=== PATIENT | female | born 1940 | race Caucasian/White ===

== ENCOUNTER 2018-12-21 11:46 | Inpatient (IN) | payer MEDICARE, BC ==
[~2018-12-21] VITALS: Ht 162.6 cm; Wt 70.3 kg
[2018-12-21 11:45] VITALS: BP 136/84
--- NOTE | 2018-12-21 11:49 | NUR ---
ED Nurse Note: Pt brought in to ER from home due to sudden weakness and s/p fall from yesterday. per pt's niece, pt slided down from toilet bowl yesterday and pt has skin tear on Lt arm while family grabbed pt from sliding down. pt aao x2 and most of time ambulatory. skin dry and Lt arm skin tear noted. calm and cooperative. no acute distress noted.
--- NOTE | 2018-12-21 11:55 | NUR ---
ED Nurse Note: steri strip applied on Lt arm skin tear. no bleeding noted.
[2018-12-21 12:47] LABS: HEMATOCRIT 44.2 % (37.0-47.0); HEMOGLOBIN 14.1 G/DL (12.0-16.0); MEAN CORPUSCULAR VOLUME 91 FL (80-99); PLATELET COUNT 255 K/UL (150-450); RED BLOOD COUNT 4.86 M/UL (4.20-5.40); RED CELL DISTRIBUTION WIDTH 13.6 % (11.6-14.8)
[2018-12-21 12:52] LABS: ANION GAP 15 mmol/L (5-15); BLOOD UREA NITROGEN 27 mg/dL (7-18); CALCIUM 10.5 MG/DL (8.5-10.1); CARBON DIOXIDE 24 MMOL/L (21-32); CHLORIDE 104 MMOL/L (98-107); CREATININE 1.6 MG/DL (0.55-1.30); POTASSIUM 4.3 MMOL/L (3.5-5.1); SODIUM 143 MMOL/L (136-145)
[2018-12-21] MEDS ORDERED: cefTRIAXone 1 GM in NS 55 ML IVPB ONE (13:00)
[2018-12-21 13:05] LABS: ALANINE AMINOTRANSFERASE 20 U/L (12-78); ALBUMIN 4.3 G/DL (3.4-5.0); ALKALINE PHOSPHATASE 57 U/L (46-116); ASPARTATE AMINO TRANSFERASE 22 U/L (15-37); BILIRUBIN,TOTAL 0.5 MG/DL (0.2-1.0)
[2018-12-21 13:35] LABS: APPEARANCE,URINE CLOUDY; BILIRUBIN, URINE NEGATIVE (NEGATIVE); COLOR,URINE PALE YELLOW; GLUCOSE, URINE (UA) NEGATIVE (NEGATIVE); KETONES,URINE NEGATIVE (NEGATIVE); LEUKOCYTE ESTERASE ,URINE 1+ (NEGATIVE); NITRITE,URINE NEGATIVE (NEGATIVE); PH,URINE 6 (4.5-8.0); PROTEIN,URINE 4+ (NEGATIVE); UROBILINOGEN,URINE NORMAL MG/DL (0.0-1.0)
--- NOTE | 2018-12-21 13:47 | NUR ---
ED Nurse Note: DOMINGUEZD at bedside explaining lab results to the daughter.
--- NOTE | 2018-12-21 13:50 | NUR ---
ED Nurse Note: pt went down for CT scan in stable condition.
--- NOTE | 2018-12-21 13:55 | Emergency Room Report ---
History of Present Illness General Chief Complaint: Generalized Weakness Source: Family Member Present Illness HPI Patient is a 78-year-old female brought in by EMS after increased generalized weakness. Patient had recently been found on the ground by her family member. She was noted to be unresponsive. She had a prior history of dementia. She was able to be placed back into her bed after the fall. Patient reportedly lives by herself. She has intermittent caregiver. She had been previously independent. She had not been vomiting or having any diarrhea. Patient denies any current pain. She is normally followed at [facility]. Allergies: Coded Allergies: No Known Allergies (Unverified , 12/21/18) Patient History Past Medical History: see triage record Reviewed Nursing Documentation: PMH: Agreed; PSxH: Agreed Nursing Documentation-PMH Hx Cardiac Problems: No - h/o of uti Review of Systems All Other Systems: negative except mentioned in HPI Physical Exam Vital Signs Date Time Temp Pulse Resp B/P (MAP) Pulse Ox O2 Delivery O2 Flow Rate FiO2 12/21/18 11:31 98.6 82 17 136/84 (101) 97 Room Air Sp02 EP Interpretation: reviewed, normal General Appearance: normal inspection, alert, GCS 15, Chronically Ill Head: atraumatic ENT: normal ENT inspection, hearing grossly normal, normal voice Neck: normal inspection, supple, no bony tend Respiratory: normal inspection, lungs clear, normal breath sounds, no respiratory distress, no retraction, no wheezing Cardiovascular #1: regular rate, rhythm, no edema Gastrointestinal: normal inspection, normal bowel sounds, non tender, soft, no guarding, no hernia Genitourinary: no CVA tenderness Musculoskeletal: normal inspection, back normal, decreased range of motion Neurologic: normal inspection, alert, oriented x3, responsive, 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 Differential diagnosis include was not limited to rhabdomyolysis, dehydration, urinary infection, myocardial injury among others. Because of complexity of patient's case laboratory tests and imaging studies were ordered. Patient was noted to have some prior history of dementia EKG interpreted by me showed normal sinus rhythm with a rate of 85 with a right bundle branch block no acute ST changes. Patient was put on IV fluids and given IV antibiotics.CT imaging of the abdomen pelvis read by radiology showed no evident stones with enlarged gallbladder. Patient was discussed with Dr. George Castro for inpatient management. Dr. Garcia he was contacted for surgical consult. Labs Test 12/21/18 12:00 12/21/18 12:40 White Blood Count 15.0 K/UL (4.8-10.8) Red Blood Count 4.86 M/UL (4.20-5.40) Hemoglobin 14.1 G/DL (12.0-16.0) Hematocrit 44.2 % (37.0-47.0) Mean Corpuscular Volume 91 FL (80-99) Mean Corpuscular Hemoglobin 29.1 PG (27.0-31.0) Mean Corpuscular Hemoglobin Concent 32.0 G/DL (32.0-36.0) Red Cell Distribution Width 13.6 % (11.6-14.8) Platelet Count 255 K/UL (150-450) Mean Platelet Volume 5.9 FL (6.5-10.1) Neutrophils (%) (Auto) % (45.0-75.0) Lymphocytes (%) (Auto) % (20.0-45.0) Monocytes (%) (Auto) % (1.0-10.0) Eosinophils (%) (Auto) % (0.0-3.0) Basophils (%) (Auto) % (0.0-2.0) Erythrocyte Sedimentation Rate 37 MM/HR (0-30) Sodium Level 143 MMOL/L (136-145) Potassium Level 4.3 MMOL/L (3.5-5.1) Chloride Level 104 MMOL/L (98-107) Carbon Dioxide Level 24 MMOL/L (21-32) Anion Gap 15 mmol/L (5-15) Blood Urea Nitrogen 27 mg/dL (7-18) Creatinine 1.6 MG/DL (0.55-1.30) Estimat Glomerular Filtration Rate mL/min (>60) Glucose Level 134 MG/DL (74-106) Calcium Level 10.5 MG/DL (8.5-10.1) Total Bilirubin 0.5 MG/DL (0.2-1.0) Aspartate Amino Transf (AST/SGOT) 22 U/L (15-37) Alanine Aminotransferase (ALT/SGPT) 20 U/L (12-78) Alkaline Phosphatase 57 U/L (46-116) Troponin I 0.009 ng/mL (0.000-0.056) Total Protein 8.5 G/DL (6.4-8.2) Albumin 4.3 G/DL (3.4-5.0) Globulin 4.2 g/dL Albumin/Globulin Ratio 1.0 (1.0-2.7) Thyroid Stimulating Hormone (TSH) 2.717 uiU/mL (0.358-3.740) Urine Color Pale yellow Urine Appearance Cloudy Urine pH 6 (4.5-8.0) Urine Specific [place] 1.015 (1.005-1.035) Urine Protein 4+ (NEGATIVE) Urine Glucose (UA) Negative (NEGATIVE) Urine Ketones Negative (NEGATIVE) Urine Blood 4+ (NEGATIVE) Urine Nitrite Negative (NEGATIVE) Urine Bilirubin Negative (NEGATIVE) Urine Urobilinogen Normal MG/DL (0.0-1.0) Urine Leukocyte Esterase 1+ (NEGATIVE) Urine RBC 10-15 /HPF (0 - 2) Urine WBC 15-20 /HPF (0 - 2) Urine Squamous Epithelial Cells Few /LPF (NONE/OCC) Urine Bacteria Many /HPF (NONE) Last Vital Signs Date Time Temp Pulse Resp B/P (MAP) Pulse Ox O2 Delivery O2 Flow Rate FiO2 12/21/18 11:45 98.6 85 17 136/84 100 Room Air Status: improved Disposition: ADMITTED INPATIENT Condition: Stable Referrals: NOT CHOSEN IPA/,REFERRING (PCP) Jeremías Cruz MD Dec 21, 2018 13:55
--- NOTE | 2018-12-21 14:09 | NUR ---
ED Nurse Note: pt came back from CT scan in stable condition.
--- NOTE | 2018-12-21 14:50 | Diagnostic Imaging Report ---
EXAM: CT Abdomen and Pelvis Without Intravenous Contrast CLINICAL HISTORY: PAIN TECHNIQUE: Axial computed tomography images of the abdomen and pelvis without intravenous contrast. CTDI is 18.1 mGy and DLP is 987.8 mGy-cm. One or more of the following dose reduction techniques were used: automated exposure control, adjustment of the mA and or kV according to patient size, use of iterative reconstruction technique. COMPARISON: No relevant prior studies available. FINDINGS: Lung bases: Elevation of the left diaphragm. Small nodules in the right lung base. Left lung base-left upper abdomen incompletely imaged. ABDOMEN: Liver: Unremarkable Gallbladder and bile ducts: Cholelithiasis and gallbladder distention. Pancreas: Atrophic pancreas. Spleen: Unremarkable. Adrenals: Unremarkable. Kidneys and ureters: Small left renal angiomyolipoma. No hydronephrosis. Stomach and bowel: Surgical changes related to the stomach. PELVIS: Appendix: Unremarkable appendix. Bladder: Guerra catheter. Reproductive: Unremarkable. ABDOMEN and PELVIS: Intraperitoneal space: Unremarkable. Bones joints: Left hip prosthesis. Spinal fusion. Soft tissues: Unremarkable. Vasculature: Unremarkable. No abdominal aortic aneurysm. Lymph nodes: No enlarged lymph nodes. IMPRESSION: 1. Cholelithiasis and gallbladder distention. 2. Unremarkable appendix.
--- NOTE | 2018-12-21 15:10 | Consultation ---
History of Present Illness General Date patient seen: Dec 21, 2018 Reason for Hospitalization: Generalized Weakness Present Illness HPI This is a very pleasant 78-year-old female who presents to the emergency department [facility] for evaluation after being found down by her family and caregiver. Patient is accompanied by her daughter who helps with history. As per patient's daughter she was found down in the bathroom earlier and was helped by the caregiver get into bed. [place] weak and had some altered mental status and therefore was brought in for evaluation. Patient does not recall these events. No nausea vomiting fever chills. Complaining of mild abdominal upper discomfort. In ED found to have a leukocytosis. CT scan performed identifying gallbladder distention with sludge and stones. Surgery called to evaluate and assist with care. Patient seen, patient evaluated, chart reviewed. Patient has been tolerating diet and having normal bowel function. Urinating well. Of note surgical history of prior laparoscopic gastric bypass many years ago. Allergies: Coded Allergies: No Known Allergies (Unverified , 12/21/18) Patient History Limited by: age, medical condition History Provided By: Patient, Medical Record, PMD Healthcare decision maker Resuscitation status Advanced Directive on File Past Medical/Surgical History Past Medical/Surgical History: (1) Abdominal pain (2) UTI (urinary tract infection) (3) Altered mental status (4) Generalized weakness (5) Leukocytosis Review of Systems Review of Symptoms General ROS: no weight loss or fever Psychological ROS: no depression or mood changes, no memory loss Ophthalmic ROS: no visual changes or eye irritation ENT ROS: no nasal congestion, hearing loss, dizziness Allergy and Immunology ROS: no allergic symptoms or urticaria Hematological and Lymphatic ROS: no swollen glands, unusual bleeding or bruising Endocrine ROS: no polyuria, polydipsia, weight changes, temperature intolerance Respiratory ROS: no cough, shortness of breath, or wheezing Cardiovascular ROS: no chest pain or dyspnea on exertion Gastrointestinal ROS: denies abdominal pain, bright red blood in stool. Musculoskeletal ROS: no myalgias or arthralgias Neurological ROS: no TIA or stroke symptoms Dermatological ROS: no new or changing skin lesions, rashes or pruritis Physical Exam Physical Exam General appearance: alert, cooperative, no distress, appears stated age Head: Normocephalic, without obvious abnormality, atraumatic Eyes: conjunctivae/corneas clear. PERRL, EOM's intact. Fundi benign Throat: Lips, mucosa, and tongue normal. Teeth and gums normal Neck: supple, symmetrical, trachea midline, no adenopathy, thyroid: not enlarged, symmetric, no tenderness/mass/nodules, no carotid bruit and no JVD Lungs: clear to auscultation bilaterally Heart: regular rate and rhythm, S1, S2 normal, no murmur, click, rub or gallop Abdomen: soft, non-tender but notes some mild discomfort in the upper abdomen on deep palpation. Bowel sounds normal. No masses, no organomegaly Extremities: extremities normal, atraumatic, no cyanosis or edema Pulses: 2+ and symmetric Skin: Skin color, texture, turgor normal. No rashes or lesions Neurologic: Grossly normal Last 24 Hour Vital Signs Date Time Temp Pulse Resp B/P (MAP) Pulse Ox O2 Delivery O2 Flow Rate FiO2 12/21/18 11:45 98.6 85 17 136/84 100 Room Air 12/21/18 11:45 90 17 Room Air 12/21/18 11:31 98.6 82 17 136/84 (101) 97 Room Air Laboratory Tests Test 12/21/18 12:00 12/21/18 12:40 White Blood Count 15.0 K/UL (4.8-10.8) H Red Blood Count 4.86 M/UL (4.20-5.40) Hemoglobin 14.1 G/DL (12.0-16.0) Hematocrit 44.2 % (37.0-47.0) Mean Corpuscular Volume 91 FL (80-99) Mean Corpuscular Hemoglobin 29.1 PG (27.0-31.0) Mean Corpuscular Hemoglobin Concent 32.0 G/DL (32.0-36.0) Red Cell Distribution Width 13.6 % (11.6-14.8) Platelet Count 255 K/UL (150-450) Mean Platelet Volume 5.9 FL (6.5-10.1) L Neutrophils (%) (Auto) % (45.0-75.0) Lymphocytes (%) (Auto) % (20.0-45.0) Monocytes (%) (Auto) % (1.0-10.0) Eosinophils (%) (Auto) % (0.0-3.0) Basophils (%) (Auto) % (0.0-2.0) Differential Total Cells Counted 100 Neutrophils % (Manual) 92 % (45-75) H Lymphocytes % (Manual) 2 % (20-45) L Monocytes % (Manual) 6 % (1-10) Eosinophils % (Manual) 0 % (0-3) Basophils % (Manual) 0 % (0-2) Band Neutrophils 0 % (0-8) Platelet Estimate Adequate Platelet Morphology Normal Red Blood Cell Morphology Normal Erythrocyte Sedimentation Rate 37 MM/HR (0-30) H Sodium Level 143 MMOL/L (136-145) Potassium Level 4.3 MMOL/L (3.5-5.1) Chloride Level 104 MMOL/L (98-107) Carbon Dioxide Level 24 MMOL/L (21-32) Anion Gap 15 mmol/L (5-15) Blood Urea Nitrogen 27 mg/dL (7-18) H Creatinine 1.6 MG/DL (0.55-1.30) H Estimat Glomerular Filtration Rate mL/min (>60) Glucose Level 134 MG/DL (74-106) H Calcium Level 10.5 MG/DL (8.5-10.1) H Total Bilirubin 0.5 MG/DL (0.2-1.0) Aspartate Amino Transf (AST/SGOT) 22 U/L (15-37) Alanine Aminotransferase (ALT/SGPT) 20 U/L (12-78) Alkaline Phosphatase 57 U/L (46-116) Troponin I 0.009 ng/mL (0.000-0.056) Total Protein 8.5 G/DL (6.4-8.2) H Albumin 4.3 G/DL (3.4-5.0) Globulin 4.2 g/dL Albumin/Globulin Ratio 1.0 (1.0-2.7) Thyroid Stimulating Hormone (TSH) 2.717 uiU/mL (0.358-3.740) Urine Color Pale yellow Urine Appearance Cloudy Urine pH 6 (4.5-8.0) Urine Specific [place] 1.015 (1.005-1.035) Urine Protein 4+ (NEGATIVE) H Urine Glucose (UA) Negative (NEGATIVE) Urine Ketones Negative (NEGATIVE) Urine Blood 4+ (NEGATIVE) H Urine Nitrite Negative (NEGATIVE) Urine Bilirubin Negative (NEGATIVE) Urine Urobilinogen Normal MG/DL (0.0-1.0) Urine Leukocyte Esterase 1+ (NEGATIVE) H Urine RBC 10-15 /HPF (0 - 2) H Urine WBC 15-20 /HPF (0 - 2) H Urine Squamous Epithelial Cells Few /LPF (NONE/OCC) Urine Bacteria Many /HPF (NONE) H Height (Feet): 5 Height (Inches): 4.00 Weight (Pounds): 180 Medications Current Medications Medications (Trade) Dose Ordered Sig/Wes Route PRN Reason Start Time Stop Time Status Last Admin Dose Admin Metronidazole 100 ml @ 100 mls/hr ONCE ONCE IVPB 12/21/18 14:45 12/21/18 15:44 12/21/18 14:54 Assessment/Plan Problem List: (1) Leukocytosis Assessment & Plan: 78-year-old female with above complaints. CT reviewed noted Labs noted Micro noted Given history and examination leukocytosis likely related to UTI. Unlikely related to gallbladder but was noted to be abnormal on CT scan. Ultrasound ordered Labs ordered Pending results Admit for further work-up, IV antibiotics, resuscitation We will follow with recommendations thank you for allowing me to participate in patient's care ICD Codes: D72.829 - Elevated white blood cell count, unspecified SNOMED: [id number], [id number] (2) Abdominal pain Assessment & Plan: Mild upper abdominal discomfort. No significant tenderness. Negative Castro's. LFTs normal History of gastric bypass no prior significant gallbladder issues Given history and examination leukocytosis likely related to UTI. Unlikely related to gallbladder but was noted to be abnormal on CT scan. Ultrasound ordered Labs ordered Pending results Admit for further work-up, IV antibiotics, resuscitation We will follow with recommendations thank you for allowing me to participate in patient's care ICD Codes: R10.9 - Unspecified abdominal pain SNOMED: [id number] Joselo Zabala Dec 21, 2018 15:10
--- NOTE | 2018-12-21 15:31 | NUR ---
ED Nurse Note: report given to DELIA Ramsay
[2018-12-21] MEDS ORDERED: ARICEPT10 MG ORAL (15:32)
[2018-12-21] MEDS ORDERED: DEXILANT30 MG ORAL (15:35)
[2018-12-21] MEDS ORDERED: NAMENDA XR28 MG PO (15:35)
[2018-12-21] MEDS ORDERED: ZYPREXA5 MG ORAL (15:35)
[2018-12-21] MEDS ORDERED: FENOFIBRATE145 M1 ORAL (15:35)
[2018-12-21] MEDS ORDERED: ASPIRIN EC81 MG ORAL (15:35)
[2018-12-21] MEDS ORDERED: REMERON15 MG ORAL (15:35)
[2018-12-21] MEDS ORDERED: ZOCOR40 MG ORAL (15:35)
[2018-12-21] MEDS ORDERED: SINGULAIR10 MG ORAL (15:35)
--- NOTE | 2018-12-21 15:47 | NUR ---
ED Nurse Note: pt transferred to 411-1 with 1 RN in stable condition.
[2018-12-21 16:00] VITALS: BP 149/82
--- NOTE | 2018-12-21 16:00 | NUR ---
NURSE NOTES: Received patient from ER via gurney. Report received from Natalee LIN. Patient is alert and oriented x2, not in respiratory/cardiac distress. Breathing is even and unlabored. Patient denies any pain or discomfort. Patient's daughter @ bedside. Obtained medical history from daughter. Orientation given to the patient and reenforcement needed. Skin assessment done noted with left forearm and hand skin tear and left elbow redness, left buttock redness, most likely skin discoloration. patient's skin is flaky and dry, thin. noted with multiple scabs on left lower leg and ecchymosis on ex's. Guerra 16fr in [address] and draining well to gravity with yellowish urine with foul smell, proper monica and skin care rendered. IV intact, no s/s of infiltration. Patient is afebrile. Dr. Castro was paged for admission order and home medication updated. Will continue plan of care.
[2018-12-21] MEDS ORDERED: Zolpidem 5mg tab ORAL PRN (17:30)
[2018-12-21] MEDS ORDERED: Milk of Magnesia 30ml Ud ORAL PRN (17:30)
--- NOTE | 2018-12-21 17:52 | NUR ---
NURSE NOTES: Admission orders were in by Dr. Castro.
--- NOTE | 2018-12-21 19:26 | NUR ---
NURSE NOTES: Received report from Diane kelsey RN. Patient is in bed, awake and alertx2. On room air with no signs of distress or SOB. No C/O pain at this time. IV in the RAC intact. Guerra in place and draining yellow urine. Daughter at bedside. Bed locked and in lowest position. Call light in reach. Will continue to monitor the patient.
[2018-12-21 20:00] VITALS: BP 121/62
[2018-12-21] MEDS: Montelukast 10mg tablet ORAL SCH (21:01)
[2018-12-21] MEDS: Donepezil 10mg tab ORAL SCH (21:01)
[2018-12-21] MEDS: Piperacillin/Tazobactam 2.25 GM in D5W 55 ML IVPB SCH (21:07)
--- NOTE | 2018-12-21 21:09 | History & Physical ---
History and Physical History & Physicial chart reviewed orders entered full note will be dictated George Castro MD Dec 21, 2018 21:09
[2018-12-22] VITALS: BP 129/74
--- NOTE | 2018-12-22 03:00 | Consultation ---
DATE OF CONSULTATION: 12/21/2018 INFECTIOUS DISEASE CONSULTATION CONSULTING PHYSICIAN: Davis Castro M.D. PRIMARY ATTENDING PHYSICIAN: George Castro M.D. REASON FOR CONSULT: UTI. HISTORY OF PRESENT ILLNESS: This is a 78-year-old white female, admitted today from home. She had a fall after waking up in the morning, was found on the floor by caregiver. She has Alzheimer dementia, has no complaint on my exam, but had leukocytosis and pyuria at the time of admission. PAST MEDICAL HISTORY: Alzheimer's dementia, history of morbid obesity, gastric bypass, history of coronary artery disease, had a stent placement, hypertension that resolved after bypass surgery. She has neurogenic bladder. PAST SURGICAL HISTORY: She had bilateral knee replacement, one side hip replacement, has history of back surgery. ALLERGIES: No known drug allergies. MEDICATIONS: Aspirin, Zosyn, Aricept, Remeron, Singulair, Zyprexa, and Tylenol. Got a dose of ceftriaxone and Flagyl in the ER. SOCIAL HISTORY: Remote history of smoking. No drinking. No alcohol abuse. , has two children. REVIEW OF SYSTEMS: The patient denies any problem and has no pain. PHYSICAL EXAMINATION: VITAL SIGNS: Temperature 98.5, pulse 89, and blood pressure 129/78. GENERAL APPEARANCE: Seems to be well developed. HEAD AND NECK: [place] conjunctivae. HEART: Normal rate. LUNGS: Clear. ABDOMEN: Soft and nontender. EXTREMITIES: No edema. NEUROLOGIC: She is awake and alert, seems to have problem to remember what happened. LABORATORY AND DIAGNOSTIC DATA: WBC 15, hemoglobin 14.1, hematocrit 44.2, and platelets 255,000. Sodium 143, potassium 4.3, chloride 104, bicarbonate 24, BUN 27, and creatinine 1.6. Calcium is 10.5. AST and ALT are normal. Total protein is 8.5, albumin 4.3. CT scan of the abdomen and pelvis, cholelithiasis, gallbladder distention, and unremarkable appendix. UA showed wbc's of 15 to 20, rbc's 10 to 50, blood 4+, leukocyte esterase 1+, and bacteria many. IMPRESSION: 1. Pyuria, likely UTI. 2. Cholelithiasis Castro's was negative. 3. Neurogenic bladder . 4. Elevated BUN and creatinine, renal failure. 5. Hypercalcemia. 6. Alzheimer's dementia. 7. Hypernatremia. 8. Coronary artery disease. RECOMMENDATION: We will continue with Zosyn. We will follow up urine culture. At the end of my exam, I thank Dr. eGorge Castro for involving me in the care of this patient. Davis Castro M.D. DR: LACEY JOB#: [id number] CC: CLIFF
[2018-12-22 04:00] VITALS: BP 126/57
[2018-12-22] MEDS: Piperacillin/Tazobactam 2.25 GM in D5W 55 ML IVPB SCH ×3 (05:08→22:03)
--- NOTE | 2018-12-22 07:36 | NUR ---
HAND-OFF: Report given to DELIA Winters.
--- NOTE | 2018-12-22 07:37 | NUR ---
NURSE NOTES: Received patient in bed asleep. No SOB or cardiac distress. IV line intact and patent. FC intact and patent. Wound dressings intact. Will continue plan of care.
[2018-12-22 07:53] LABS: HEMATOCRIT 33.9 % (37.0-47.0); HEMOGLOBIN 11.2 G/DL (12.0-16.0); MEAN CORPUSCULAR VOLUME 91 FL (80-99); PLATELET COUNT 191 K/UL (150-450); RED BLOOD COUNT 3.74 M/UL (4.20-5.40); RED CELL DISTRIBUTION WIDTH 13.8 % (11.6-14.8); WHITE BLOOD COUNT 9.8 K/UL (4.8-10.8)
[2018-12-22 08:00] VITALS: BP_SYST 107; BP_SYST 146; BP_DIAS 60; BP_DIAS 92
[2018-12-22] MEDS: Aspirin EC 81mg tab ORAL SCH (08:46)
--- NOTE | 2018-12-22 08:57 | NUR ---
NURSE NOTES: Found FC pulled out with balloon still inflated. Patient said she did not feel any pain. No bleeding noted.
[2018-12-22 09:03] LABS: ALANINE AMINOTRANSFERASE 14 U/L (12-78); ALBUMIN 3.2 G/DL (3.4-5.0); ALBUMIN/GLOBULIN RATIO 0.9 (1.0-2.7); ALKALINE PHOSPHATASE 43 U/L (46-116); AMYLASE 43 U/L (25-115); ANION GAP 12 mmol/L (5-15); ASPARTATE AMINO TRANSFERASE 17 U/L (15-37); BILIRUBIN,TOTAL 0.3 MG/DL (0.2-1.0); BLOOD UREA NITROGEN 22 mg/dL (7-18); CALCIUM 9.5 MG/DL (8.5-10.1); CARBON DIOXIDE 21 MMOL/L (21-32); CHLORIDE 107 MMOL/L (98-107); CREATININE 1.6 MG/DL (0.55-1.30); POTASSIUM 3.3 MMOL/L (3.5-5.1); SODIUM 140 MMOL/L (136-145)
--- NOTE | 2018-12-22 09:30 | NUR ---
NURSE NOTES: Attempted to reinsert FC but no urine output.
--- NOTE | 2018-12-22 11:00 | NUR ---
NURSE NOTES: Patient seen by Dr Lillie Benoit, said patient did not need FC reinsertion anymore.
--- NOTE | 2018-12-22 11:11 | General Progress Note ---
Assessment/Plan Problem List: (1) UTI (urinary tract infection) ICD Codes: N39.0 - Urinary tract infection, site not specified SNOMED: 38384107 (2) Gallbladder disorder ICD Codes: K82.9 - Disease of gallbladder, unspecified SNOMED: 91781866 (3) Leukocytosis ICD Codes: D72.829 - Elevated white blood cell count, unspecified SNOMED: 906727566, 681615187 (4) Altered mental status ICD Codes: R41.82 - Altered mental status, unspecified SNOMED: 276377619 (5) Generalized weakness ICD Codes: R53.1 - Weakness SNOMED: 60639660 (6) Abdominal pain ICD Codes: R10.9 - Unspecified abdominal pain SNOMED: 41977841 Assessment/Plan: IV abxs discussed with daughter follow labs check cultures Subjective Allergies: Coded Allergies: No Known Allergies (Unverified , 12/21/18) Subjective ok Objective Last 24 Hour Vital Signs Date Time Temp Pulse Resp B/P (MAP) Pulse Ox O2 Delivery O2 Flow Rate FiO2 12/22/18 09:00 Room Air 12/22/18 08:00 100.8 63 20 107/60 (76) 93 12/22/18 04:00 98.2 96 20 126/57 (80) 95 12/22/18 00:00 98.0 92 19 129/74 (92) 97 12/21/18 20:12 Room Air 12/21/18 20:00 99.0 98 19 121/62 (81) 97 12/21/18 17:10 Room Air 12/21/18 16:00 98.8 82 18 149/82 (104) 96 12/21/18 15:48 98.5 89 17 129/78 100 Room Air 12/21/18 11:45 98.6 85 17 136/84 100 Room Air 12/21/18 11:45 90 17 Room Air 12/21/18 11:31 98.6 82 17 136/84 (101) 97 Room Air Intake and Output 12/21/18 12/22/18 19:00 07:00 Intake Total 1355 ml 200 ml Output Total 540 ml 550 ml Balance 815 ml -350 ml Intake Oral 200 ml 200 ml IV Total 1155 ml Output Urine Total 540 ml 550 ml # Voids 1 Laboratory Tests 12/21/18 12:00: White Blood Count 15.0H, Red Blood Count 4.86, Hemoglobin 14.1, Hematocrit 44.2 , Mean Corpuscular Volume 91, Mean Corpuscular Hemoglobin 29.1, Mean Corpuscular Hemoglobin Concent 32.0, Red Cell Distribution Width 13.6, Platelet Count 255, Mean Platelet Volume 5.9L, Neutrophils (%) (Auto) , Lymphocytes (%) ( Auto) , Monocytes (%) (Auto) , Eosinophils (%) (Auto) , Basophils (%) (Auto) , Differential Total Cells Counted 100, Neutrophils % (Manual) 92H, Lymphocytes % (Manual) 2L, Monocytes % (Manual) 6, Eosinophils % (Manual) 0, Basophils % ( Manual) 0, Band Neutrophils 0, Platelet Estimate Adequate, Platelet Morphology Normal, Red Blood Cell Morphology Normal, Erythrocyte Sedimentation Rate 37H, Sodium Level 143, Potassium Level 4.3, Chloride Level 104, Carbon Dioxide Level 24, Anion Gap 15, Blood Urea Nitrogen 27H, Creatinine 1.6H, Estimat Glomerular Filtration Rate , Glucose Level 134H, Calcium Level 10.5H, Total Bilirubin 0.5, Aspartate Amino Transf (AST/SGOT) 22, Alanine Aminotransferase (ALT/SGPT) 20, Alkaline Phosphatase 57, Troponin I 0.009, Total Protein 8.5H, Albumin 4.3, Globulin 4.2, Albumin/Globulin Ratio 1.0, Thyroid Stimulating Hormone (TSH) 2.717 12/21/18 12:40: Urine Color Pale yellow, Urine Appearance Cloudy, Urine pH 6, Urine Specific [place] 1.015, Urine Protein 4+H, Urine Glucose (UA) Negative, Urine Ketones Negative, Urine Blood 4+H, Urine Nitrite Negative, Urine Bilirubin Negative, Urine Urobilinogen Normal, Urine Leukocyte Esterase 1+H, Urine RBC 10-15H, Urine WBC 15-20H, Urine Squamous Epithelial Cells Few, Urine Bacteria ManyH 12/22/18 06:55: White Blood Count 9.8, Red Blood Count 3.74L, Hemoglobin 11.2L, Hematocrit 33.9L , Mean Corpuscular Volume 91, Mean Corpuscular Hemoglobin 29.8, Mean Corpuscular Hemoglobin Concent 32.9, Red Cell Distribution Width 13.8, Platelet Count 191, Mean Platelet Volume 6.2L, Neutrophils (%) (Auto) , Lymphocytes (%) ( Auto) , Monocytes (%) (Auto) , Eosinophils (%) (Auto) , Basophils (%) (Auto) , Neutrophils % (Manual) [Pending], Lymphocytes % (Manual) [Pending], Platelet Estimate [Pending], Platelet Morphology [Pending], Erythrocyte Sedimentation Rate 47H, Sodium Level 140, Potassium Level 3.3L, Chloride Level 107, Carbon Dioxide Level 21, Anion Gap 12, Blood Urea Nitrogen 22H, Creatinine 1.6H, Estimat Glomerular Filtration Rate , Glucose Level 115H, Calcium Level 9.5, Total Bilirubin 0.3, Aspartate Amino Transf (AST/SGOT) 17, Alanine Aminotransferase (ALT/SGPT) 14, Alkaline Phosphatase 43L, Total Protein 6.7, Albumin 3.2L, Globulin 3.5, Albumin/Globulin Ratio 0.9L, Prothrombin Time 10.5, Prothromb Time International Ratio 1.0, Activated Partial Thromboplast Time 32, C-Reactive Protein, Quantitative 20.2H, Amylase Level 43, Lipase 148 Height (Feet): 5 Height (Inches): 4.00 Weight (Pounds): 155 Cardiovascular: normal rate Respiratory/Chest: lungs clear Abdomen: soft George Castro MD Dec 22, 2018 11:11
[2018-12-22 12:00] VITALS: BP 110/60
--- NOTE | 2018-12-22 13:12 | Surgery Progress Note ---
Surgery Progress Note Subjective Symptoms: improved, tolerating diet, voiding well, passing flatus Objective Last 24 Hour Vital Signs Date Time Temp Pulse Resp B/P (MAP) Pulse Ox O2 Delivery O2 Flow Rate FiO2 12/22/18 12:00 98.6 61 20 110/60 (77) 95 12/22/18 09:00 Room Air 12/22/18 08:00 100.8 63 20 107/60 (76) 93 12/22/18 04:00 98.2 96 20 126/57 (80) 95 12/22/18 00:00 98.0 92 19 129/74 (92) 97 12/21/18 20:12 Room Air 12/21/18 20:00 99.0 98 19 121/62 (81) 97 12/21/18 17:10 Room Air 12/21/18 16:00 98.8 82 18 149/82 (104) 96 12/21/18 15:48 98.5 89 17 129/78 100 Room Air I&O Intake and Output 12/21/18 12/22/18 19:00 07:00 Intake Total 1355 ml 200 ml Output Total 540 ml 550 ml Balance 815 ml -350 ml Intake Oral 200 ml 200 ml IV Total 1155 ml Output Urine Total 540 ml 550 ml # Voids 1 Cardiovascular: RSR Respiratory: clear Abdomen: soft, flat, non-tender, present bowel sounds Extremities: no edema, no tenderness, no cyanosis Laboratory Tests Test 12/22/18 06:55 White Blood Count 9.8 K/UL (4.8-10.8) Red Blood Count 3.74 M/UL (4.20-5.40) L Hemoglobin 11.2 G/DL (12.0-16.0) L Hematocrit 33.9 % (37.0-47.0) L Mean Corpuscular Volume 91 FL (80-99) Mean Corpuscular Hemoglobin 29.8 PG (27.0-31.0) Mean Corpuscular Hemoglobin Concent 32.9 G/DL (32.0-36.0) Red Cell Distribution Width 13.8 % (11.6-14.8) Platelet Count 191 K/UL (150-450) Mean Platelet Volume 6.2 FL (6.5-10.1) L Neutrophils (%) (Auto) % (45.0-75.0) Lymphocytes (%) (Auto) % (20.0-45.0) Monocytes (%) (Auto) % (1.0-10.0) Eosinophils (%) (Auto) % (0.0-3.0) Basophils (%) (Auto) % (0.0-2.0) Differential Total Cells Counted 100 Neutrophils % (Manual) 92 % (45-75) H Lymphocytes % (Manual) 4 % (20-45) L Monocytes % (Manual) 2 % (1-10) Eosinophils % (Manual) 2 % (0-3) Basophils % (Manual) 0 % (0-2) Band Neutrophils 0 % (0-8) Platelet Estimate Adequate Platelet Morphology Normal Hypochromasia 1+ Anisocytosis 1+ Erythrocyte Sedimentation Rate 47 MM/HR (0-30) H Prothrombin Time 10.5 SEC (9.30-11.50) Prothromb Time International Ratio 1.0 (0.9-1.1) Activated Partial Thromboplast Time 32 SEC (23-33) Sodium Level 140 MMOL/L (136-145) Potassium Level 3.3 MMOL/L (3.5-5.1) L Chloride Level 107 MMOL/L (98-107) Carbon Dioxide Level 21 MMOL/L (21-32) Anion Gap 12 mmol/L (5-15) Blood Urea Nitrogen 22 mg/dL (7-18) H Creatinine 1.6 MG/DL (0.55-1.30) H Estimat Glomerular Filtration Rate mL/min (>60) Glucose Level 115 MG/DL (74-106) H Calcium Level 9.5 MG/DL (8.5-10.1) Total Bilirubin 0.3 MG/DL (0.2-1.0) Aspartate Amino Transf (AST/SGOT) 17 U/L (15-37) Alanine Aminotransferase (ALT/SGPT) 14 U/L (12-78) Alkaline Phosphatase 43 U/L (46-116) L C-Reactive Protein, Quantitative 20.2 mg/dL (0.00-0.90) H Total Protein 6.7 G/DL (6.4-8.2) Albumin 3.2 G/DL (3.4-5.0) L Globulin 3.5 g/dL Albumin/Globulin Ratio 0.9 (1.0-2.7) L Amylase Level 43 U/L (25-115) Lipase 148 U/L (73-393) Plan Problems: (1) Leukocytosis Assessment & Plan: 78-year-old female with above complaints. CT reviewed noted Labs noted Micro noted Given history and examination leukocytosis likely related to UTI. Unlikely related to gallbladder but was noted to be abnormal on CT scan. Ultrasound ordered Labs ordered Pending results Admit for further work-up, IV antibiotics, resuscitation We will follow with recommendations thank you for allowing me to participate in patient's care (2) Abdominal pain Assessment & Plan: Mild upper abdominal discomfort. No significant tenderness. Negative Castro's. LFTs normal History of gastric bypass no prior significant gallbladder issues Given history and examination leukocytosis likely related to UTI. Unlikely related to gallbladder but was noted to be abnormal on CT scan. Ultrasound ordered Labs ordered Pending results Admit for further work-up, IV antibiotics, resuscitation We will follow with recommendations thank you for allowing me to participate in patient's care Joselo Zabala Dec 22, 2018 13:12
--- NOTE | 2018-12-22 15:00 | NUR ---
NURSE NOTES: Patient noted with blood-tinged urine output on bed pad. made aware.
[2018-12-22 16:00] VITALS: BP 108/56
--- NOTE | 2018-12-22 16:30 | History and Physical Report ---
DATE OF ADMISSION: 12/21/2018 CHIEF COMPLAINT: The patient was found on the floor in her residence. HISTORY OF PRESENT ILLNESS: This is a 78-year-old white female with history of Alzheimer's dementia. She lives with a caregiver. The patient was found down in the bathroom yesterday and was helped by caregiver to bed. The patient was feeling weak and she was brought into the emergency room. There was a report of some mild abdominal discomfort, also there was leukocytosis. CT scan was performed in the emergency room showing gallbladder distention with sludge and stones. The patient was seen by Dr. Zabala in surgical consultation and was admitted. The patient was found also to have a urinary tract infection. PAST MEDICAL HISTORY: Alzheimer's dementia, history of gastric bypass, coronary artery disease status post stent placement, hypertension, neurogenic bladder. SOCIAL HISTORY: No history of smoking or alcohol abuse. She lives at home with caregiver. ALLERGIES: No known drug allergies. MEDICATIONS: Reviewed in the EMR. REVIEW OF SYSTEMS: As above. PHYSICAL EXAMINATION: GENERAL: The patient is a pleasant female, in no acute distress. She is not oriented to time and place. VITAL SIGNS: Blood pressure is 107/60, pulse 63, temperature 100.8. HEENT: [place] conjunctivae. Anicteric sclerae. NECK: Supple. LUNGS: Clear to auscultation. HEART: S1 and S2 without murmurs or rubs. ABDOMEN: Soft, nontender. EXTREMITIES: No cyanosis or edema. LABORATORY AND DIAGNOSTIC DATA: The CBC shows WBC of 15,000, hematocrit is , hemoglobin is 13.1, and platelet is 255,000. Chemistry panel shows a sodium 142, potassium 4.3, chloride 104, CO2 24, BUN 27, creatinine 1.6, calcium is 10.5. TSH is 2.7. ASSESSMENT: This is a 78-year-old white female who was admitted after she was found on the floor of the bathroom. She has urinary tract infection. Also the CT scan shows some distended gallbladder with sludge and stones. The patient was seen by Dr. Zabala in surgical consultation as well as Dr. Davis Castro for ID. She was started on IV antibiotics. Currently, she does not have any abdominal pain. We will follow the patient clinically and make further adjustment in the patient's regimen. George Castro M.D. DR: Yon JOB#: [id number] CC:
--- NOTE | 2018-12-22 19:26 | NUR ---
HAND-OFF: Report given to Kelley.
--- NOTE | 2018-12-22 19:31 | NUR ---
NURSE NOTES: Patient is in bed, awake and alertx2. On room air with no signs of distress or SOB. No C/O pain at this time. IV in the RFA 22g intact. Guerra D/C per patient - MD aware per AM shift. Daughter and caregiver at bedside. Bed locked and in lowest position. Call light in reach. Will continue to monitor the patient.
[2018-12-22 20:00] VITALS: BP 122/66
[2018-12-22] MEDS: Montelukast 10mg tablet ORAL SCH (22:02)
[2018-12-22] MEDS: Donepezil 10mg tab ORAL SCH (22:03)
--- NOTE | 2018-12-22 22:38 | NUR ---
NURSE NOTES: Patient's caregiver at bedside reported that the patient was not getting the same dose of Mirtazapine that she normally gets at home. Primary MD made aware. New orders received.
[2018-12-23] VITALS: BP 141/89
[2018-12-23 04:00] VITALS: BP 124/48
[2018-12-23] MEDS: Piperacillin/Tazobactam 2.25 GM in D5W 55 ML IVPB SCH ×3 (05:06→21:52)
--- NOTE | 2018-12-23 06:52 | NUR ---
HAND-OFF: Report given to DELIA Winters.
--- NOTE | 2018-12-23 06:53 | NUR ---
NURSE NOTES: Received patient on bed asleep. No SOB or cardiac distress. SCD on. IV line intact and patent, no s/s of infiltration. For PT evaluation today. Will continue plan of care. Addendum: 12/23/18 at 1940 by Vianey Fair RN Bilateral SCD on lower extremities on.
[2018-12-23 07:35] LABS: BASOPHILS % (AUTO) 1.4 % (0.0-2.0); EOSINOPHILS % (AUTO) 2.6 % (0.0-3.0); HEMATOCRIT 33.8 % (37.0-47.0); HEMOGLOBIN 10.9 G/DL (12.0-16.0); LYMPHOCYTES % (AUTO) 6.8 % (20.0-45.0); MEAN CORPUSCULAR VOLUME 92 FL (80-99); MONOCYTES % (AUTO) 7.9 % (1.0-10.0); NEUTROPHILS % (AUTO) 81.3 % (45.0-75.0); PLATELET COUNT 198 K/UL (150-450); RED BLOOD COUNT 3.66 M/UL (4.20-5.40); RED CELL DISTRIBUTION WIDTH 13.9 % (11.6-14.8); WHITE BLOOD COUNT 6.8 K/UL (4.8-10.8)
[2018-12-23 07:58] LABS: ALANINE AMINOTRANSFERASE 15 U/L (12-78); ALBUMIN 2.9 G/DL (3.4-5.0); ALBUMIN/GLOBULIN RATIO 0.8 (1.0-2.7); ALKALINE PHOSPHATASE 45 U/L (46-116); ANION GAP 10 mmol/L (5-15); ASPARTATE AMINO TRANSFERASE 14 U/L (15-37); BILIRUBIN,TOTAL 0.3 MG/DL (0.2-1.0); BLOOD UREA NITROGEN 29 mg/dL (7-18); CALCIUM 9.6 MG/DL (8.5-10.1); CARBON DIOXIDE 25 MMOL/L (21-32); CHLORIDE 109 MMOL/L (98-107); CREATININE 1.9 MG/DL (0.55-1.30); POTASSIUM 3.5 MMOL/L (3.5-5.1); SODIUM 144 MMOL/L (136-145)
[2018-12-23 08:00] VITALS: BP 114/52
--- NOTE | 2018-12-23 08:00 | NUR ---
NURSE NOTES: Patient showing very agitated behavior today. Screaming and wanting to walk to the bathroom, RN explained risks to patient. RN kept patient on bed and offered bedpan several times but she kept refusing and screaming. Kept on close watch. Call light within reach, bed on lowest position and locked, HOB elevated.
--- NOTE | 2018-12-23 08:30 | NUR ---
NURSE NOTES: Seen and evaluated by PT today, said patient has very unsteady gait. PT provided patient with bedside commode.
[2018-12-23] MEDS: Aspirin EC 81mg tab ORAL SCH (08:48)
--- NOTE | 2018-12-23 09:00 | NUR ---
PT EVALUATION NOTE Patient seen for initial evaluation, see complete evaluation for details. Patient presents with generalized weakness and impaired balance which affects patient's ability to perform mobility tasks. Patient requires min/mod assist for bed mobility and transfers with FWW. Patient unsteady upon standing with tendency to lose her balance posteriorly. Patient unable to ambulate at this time, was only able to take a few small steps from bed to bedside commode. Patient will benefit from skilled inpatient PT intervention to address strength, balance and safety to improve level of functional mobility and to decrease risk of falls. Recommend discharge to SNF for further rehab once medically cleared by MD. Further DME needs to be determined. Addendum: 12/23/18 at 1318 by NICKIE TATE PT Amended: Links added.
--- NOTE | 2018-12-23 10:55 | Infectious Diseases Prog Note ---
Assessment/Plan Assessment/Plan IMPRESSION: 1. Pyuria, likely UTI. 2. Cholelithiasis Castro's was negative. 3. Neurogenic bladder . 4. Elevated BUN and creatinine, renal failure. 5. Hypercalcemia. 6. Alzheimer's dementia. 7. Hyponatremia. 8. Coronary artery disease. RECOMMENDATION: We will continue with Zosyn. We will follow up urine culture. Subjective ROS Limited/Unobtainable: No Constitutional: Reports: no symptoms Respiratory: Reports: no symptoms Breasts: Reports: no symptoms Cardiovascular: Reports: no symptoms Gastrointestinal/Abdominal: Reports: no symptoms Musculoskeletal: Reports: pain, other - neck pain with sitting up Allergies: Coded Allergies: No Known Allergies (Unverified , 12/21/18) Objective Vital Signs Last 24 Hour Vital Signs Date Time Temp Pulse Resp B/P (MAP) Pulse Ox O2 Delivery O2 Flow Rate FiO2 12/23/18 08:00 97.7 82 18 114/52 (72) 92 12/23/18 04:00 97.7 79 20 124/48 (73) 98 12/23/18 00:00 98.0 84 20 141/89 (106) 97 12/22/18 21:20 99.0 12/22/18 20:00 Room Air 12/22/18 20:00 101.1 87 20 122/66 (84) 95 12/22/18 16:00 99.7 69 18 108/56 (73) 95 12/22/18 12:00 98.6 61 20 110/60 (77) 95 Height (Feet): 5 Height (Inches): 4.00 Weight (Pounds): 155 General Appearance: no acute distress HEENT: mucous membranes moist Respiratory/Chest: lungs clear Cardiovascular: normal rate Abdomen: soft, non tender Extremities: no edema Neurologic/Psychiatric: alert, responsive Microbiology Date/Time Source Procedure Growth Status 12/21/18 12:40 Urine,Clean Catch Urine Culture - Preliminary Gram Negative Bacillus 1 Resulted Laboratory Tests Test 12/23/18 06:35 White Blood Count 6.8 K/UL (4.8-10.8) Red Blood Count 3.66 M/UL (4.20-5.40) L Hemoglobin 10.9 G/DL (12.0-16.0) L Hematocrit 33.8 % (37.0-47.0) L Mean Corpuscular Volume 92 FL (80-99) Mean Corpuscular Hemoglobin 29.8 PG (27.0-31.0) Mean Corpuscular Hemoglobin Concent 32.2 G/DL (32.0-36.0) Red Cell Distribution Width 13.9 % (11.6-14.8) Platelet Count 198 K/UL (150-450) Mean Platelet Volume 6.8 FL (6.5-10.1) Neutrophils (%) (Auto) 81.3 % (45.0-75.0) H Lymphocytes (%) (Auto) 6.8 % (20.0-45.0) L Monocytes (%) (Auto) 7.9 % (1.0-10.0) Eosinophils (%) (Auto) 2.6 % (0.0-3.0) Basophils (%) (Auto) 1.4 % (0.0-2.0) Sodium Level 144 MMOL/L (136-145) Potassium Level 3.5 MMOL/L (3.5-5.1) Chloride Level 109 MMOL/L (98-107) H Carbon Dioxide Level 25 MMOL/L (21-32) Anion Gap 10 mmol/L (5-15) Blood Urea Nitrogen 29 mg/dL (7-18) H Creatinine 1.9 MG/DL (0.55-1.30) H Estimat Glomerular Filtration Rate mL/min (>60) Glucose Level 117 MG/DL (74-106) H Calcium Level 9.6 MG/DL (8.5-10.1) Total Bilirubin 0.3 MG/DL (0.2-1.0) Aspartate Amino Transf (AST/SGOT) 14 U/L (15-37) L Alanine Aminotransferase (ALT/SGPT) 15 U/L (12-78) Alkaline Phosphatase 45 U/L (46-116) L Total Protein 6.5 G/DL (6.4-8.2) Albumin 2.9 G/DL (3.4-5.0) L Globulin 3.6 g/dL Albumin/Globulin Ratio 0.8 (1.0-2.7) L Current Medications Medications (Trade) Dose Ordered Sig/Wes Route PRN Reason Start Time Stop Time Status Last Admin Dose Admin Acetaminophen (Tylenol) 650 mg Q4H PRN ORAL Mild Pain (Pain Scale 1-3) 12/21/18 17:30 01/20/19 17:29 12/22/18 20:50 Aspirin (Ecotrin) 81 mg DAILY ORAL 12/22/18 09:00 01/21/19 08:59 12/23/18 08:48 Dextrose (Dextrose 50%) 25 ml Q30M PRN IV Hypoglycemia 12/21/18 17:30 01/20/19 17:29 Dextrose (Dextrose 50%) 50 ml Q30M PRN IV Hypoglycemia 12/21/18 17:30 01/20/19 17:29 Donepezil HCl (Aricept) 10 mg QHS ORAL 12/21/18 21:00 01/20/19 20:59 12/22/18 22:03 Magnesium Hydroxide (Mom) 30 ml HSPRN PRN ORAL Constipation 12/21/18 17:30 01/20/19 17:29 Mirtazapine (Remeron) 45 mg BEDTIME ORAL 12/23/18 21:00 01/22/19 20:59 Montelukast Sodium (Singulair) 10 mg QHS ORAL 12/21/18 21:00 01/20/19 20:59 12/22/18 22:02 Olanzapine (ZyPREXA) 5 mg QHS ORAL 12/21/18 21:00 01/20/19 20:59 12/22/18 22:02 Piperacillin Sod/ Tazobactam Sod 2.25 gm/Dextrose 55 ml @ 110 mls/hr Q8HR IVPB 12/21/18 22:00 12/26/18 21:59 12/23/18 05:06 Zolpidem Tartrate (Ambien) 5 mg HSPRN PRN ORAL Insomnia 12/21/18 17:30 12/28/18 17:29 12/22/18 01:31 Davis Castro MD Dec 23, 2018 10:55
[2018-12-23 12:00] VITALS: BP 116/69
--- NOTE | 2018-12-23 13:52 | General Progress Note ---
Assessment/Plan Problem List: (1) UTI (urinary tract infection) ICD Codes: N39.0 - Urinary tract infection, site not specified SNOMED: 73568018 (2) Gallbladder disorder ICD Codes: K82.9 - Disease of gallbladder, unspecified SNOMED: 06898351 (3) Leukocytosis ICD Codes: D72.829 - Elevated white blood cell count, unspecified SNOMED: 205361408, 557198033 (4) Altered mental status ICD Codes: R41.82 - Altered mental status, unspecified SNOMED: 714523283 (5) Generalized weakness ICD Codes: R53.1 - Weakness SNOMED: 05089156 (6) Abdominal pain ICD Codes: R10.9 - Unspecified abdominal pain SNOMED: 83234932 Status Narrative gram negatives in urine Assessment/Plan: IV abxs discussed with daughter follow labs check final cultures Subjective Allergies: Coded Allergies: No Known Allergies (Unverified , 12/21/18) Subjective ok Objective Last 24 Hour Vital Signs Date Time Temp Pulse Resp B/P (MAP) Pulse Ox O2 Delivery O2 Flow Rate FiO2 12/23/18 12:00 97.3 75 18 116/69 (85) 95 12/23/18 09:00 Room Air 12/23/18 08:00 97.7 82 18 114/52 (72) 92 12/23/18 04:00 97.7 79 20 124/48 (73) 98 12/23/18 00:00 98.0 84 20 141/89 (106) 97 12/22/18 21:20 99.0 12/22/18 20:00 Room Air 12/22/18 20:00 101.1 87 20 122/66 (84) 95 12/22/18 16:00 99.7 69 18 108/56 (73) 95 Intake and Output 12/22/18 12/23/18 19:00 07:00 Intake Total 1055 ml 240 ml Output Total 1200 ml Balance -145 ml 240 ml Intake Oral 1000 ml 240 ml IV Total 55 ml Output Urine Total 1200 ml # Voids 3 Laboratory Tests 12/23/18 06:35: White Blood Count 6.8, Red Blood Count 3.66L, Hemoglobin 10.9L, Hematocrit 33.8L , Mean Corpuscular Volume 92, Mean Corpuscular Hemoglobin 29.8, Mean Corpuscular Hemoglobin Concent 32.2, Red Cell Distribution Width 13.9, Platelet Count 198, Mean Platelet Volume 6.8, Neutrophils (%) (Auto) 81.3H, Lymphocytes ( %) (Auto) 6.8L, Monocytes (%) (Auto) 7.9, Eosinophils (%) (Auto) 2.6, Basophils (%) (Auto) 1.4, Sodium Level 144, Potassium Level 3.5, Chloride Level 109H, Carbon Dioxide Level 25, Anion Gap 10, Blood Urea Nitrogen 29H, Creatinine 1.9H , Estimat Glomerular Filtration Rate , Glucose Level 117H, Calcium Level 9.6, Total Bilirubin 0.3, Aspartate Amino Transf (AST/SGOT) 14L, Alanine Aminotransferase (ALT/SGPT) 15, Alkaline Phosphatase 45L, Total Protein 6.5, Albumin 2.9L, Globulin 3.6, Albumin/Globulin Ratio 0.8L Height (Feet): 5 Height (Inches): 4.00 Weight (Pounds): 155 Cardiovascular: normal rate Respiratory/Chest: lungs clear Abdomen: soft George Castro MD Dec 23, 2018 13:52
--- NOTE | 2018-12-23 14:23 | NUR ---
NURSE NOTES:WOUND CARE NOTES:Pt presented on admission S/P Fall in community with skin tears and bruises L forearm /dorsal L hand . Abrasion with erythema L elbow. Bruise that is black with reddish borders L lower,outer quadrant of buttocks. Sacrum is pink and blanchable. Pt denied tenderness when palpated. Both heels are soft with non-blanching erythema. Pt denied pain when each heel palpated. Tx.plan: Apply Moisture Barrier Paste to Sacrum. Cover with Optifoam Drsg. Change every 3 days and prn. Apply Cavilon Skin Barrier to both heels. Cover each heel with Optifoam drsg. Change every 7 days and prn. Reposition at least every 2hours or as tolerated. Off-load heels with pillow.
--- NOTE | 2018-12-23 15:00 | NUR ---
NURSE NOTES: Seen and evaluated by wound nurse. Dressing on sacral area and heels changed.
--- NOTE | 2018-12-23 15:47 | Surgery Progress Note ---
Surgery Progress Note Subjective Symptoms: improved, tolerating diet, passing flatus, pain decreased Additional Comments Patient seen and examined bedside. No acute events. States she feels better. No complaints. Labs noted. Exam stable Objective Last 24 Hour Vital Signs Date Time Temp Pulse Resp B/P (MAP) Pulse Ox O2 Delivery O2 Flow Rate FiO2 12/23/18 12:00 97.3 75 18 116/69 (85) 95 12/23/18 09:00 Room Air 12/23/18 08:00 97.7 82 18 114/52 (72) 92 12/23/18 04:00 97.7 79 20 124/48 (73) 98 12/23/18 00:00 98.0 84 20 141/89 (106) 97 12/22/18 21:20 99.0 12/22/18 20:00 Room Air 12/22/18 20:00 101.1 87 20 122/66 (84) 95 12/22/18 16:00 99.7 69 18 108/56 (73) 95 I&O Intake and Output 12/22/18 12/23/18 19:00 07:00 Intake Total 1055 ml 240 ml Output Total 1200 ml Balance -145 ml 240 ml Intake Oral 1000 ml 240 ml IV Total 55 ml Output Urine Total 1200 ml # Voids 3 Cardiovascular: RSR Respiratory: clear Abdomen: soft, flat, non-tender, present bowel sounds Extremities: no edema, no tenderness, no cyanosis Laboratory Tests Test 12/23/18 06:35 White Blood Count 6.8 K/UL (4.8-10.8) Red Blood Count 3.66 M/UL (4.20-5.40) L Hemoglobin 10.9 G/DL (12.0-16.0) L Hematocrit 33.8 % (37.0-47.0) L Mean Corpuscular Volume 92 FL (80-99) Mean Corpuscular Hemoglobin 29.8 PG (27.0-31.0) Mean Corpuscular Hemoglobin Concent 32.2 G/DL (32.0-36.0) Red Cell Distribution Width 13.9 % (11.6-14.8) Platelet Count 198 K/UL (150-450) Mean Platelet Volume 6.8 FL (6.5-10.1) Neutrophils (%) (Auto) 81.3 % (45.0-75.0) H Lymphocytes (%) (Auto) 6.8 % (20.0-45.0) L Monocytes (%) (Auto) 7.9 % (1.0-10.0) Eosinophils (%) (Auto) 2.6 % (0.0-3.0) Basophils (%) (Auto) 1.4 % (0.0-2.0) Sodium Level 144 MMOL/L (136-145) Potassium Level 3.5 MMOL/L (3.5-5.1) Chloride Level 109 MMOL/L (98-107) H Carbon Dioxide Level 25 MMOL/L (21-32) Anion Gap 10 mmol/L (5-15) Blood Urea Nitrogen 29 mg/dL (7-18) H Creatinine 1.9 MG/DL (0.55-1.30) H Estimat Glomerular Filtration Rate mL/min (>60) Glucose Level 117 MG/DL (74-106) H Calcium Level 9.6 MG/DL (8.5-10.1) Total Bilirubin 0.3 MG/DL (0.2-1.0) Aspartate Amino Transf (AST/SGOT) 14 U/L (15-37) L Alanine Aminotransferase (ALT/SGPT) 15 U/L (12-78) Alkaline Phosphatase 45 U/L (46-116) L Total Protein 6.5 G/DL (6.4-8.2) Albumin 2.9 G/DL (3.4-5.0) L Globulin 3.6 g/dL Albumin/Globulin Ratio 0.8 (1.0-2.7) L Plan Problems: (1) Leukocytosis Assessment & Plan: 78-year-old female with above complaints. CT reviewed noted Labs noted Micro noted Given history and examination leukocytosis likely related to UTI. Unlikely related to gallbladder but was noted to be abnormal on CT scan. Ultrasound ordered Labs ordered Pending results Admit for further work-up, IV antibiotics, resuscitation We will follow with recommendations thank you for allowing me to participate in patient's care (2) Abdominal pain Assessment & Plan: Mild upper abdominal discomfort. No significant tenderness. Negative Castro's. LFTs normal History of gastric bypass no prior significant gallbladder issues Given history and examination leukocytosis likely related to UTI. Unlikely related to gallbladder but was noted to be abnormal on CT scan. Ultrasound ordered Labs ordered Pending results Admit for further work-up, IV antibiotics, resuscitation We will follow with recommendations thank you for allowing me to participate in patient's care Joselo Zabala Dec 23, 2018 15:47
[2018-12-23 16:00] VITALS: BP 97/54
--- NOTE | 2018-12-23 16:57 | NUR ---
*-* DISCHARGE PLANNING *-* PATIENT HAS BEEN REFERRED TO: [facility] P: [phone] F: [phone]
--- NOTE | 2018-12-23 19:41 | NUR ---
HAND-OFF: Report given to Kelley.
--- NOTE | 2018-12-23 19:41 | NUR ---
NURSE NOTES: Patient is in bed, awake and alert x2. On room air with no signs of distress or SOB. No C/O pain at this time. IV in the RFA 22g intact. Daughter and caregiver at bedside. Bed locked and in lowest position. Call light in reach. Will continue to monitor the patient.
[2018-12-23 20:00] VITALS: BP 104/43
[2018-12-23] MEDS: Montelukast 10mg tablet ORAL SCH (21:52)
[2018-12-23] MEDS: Donepezil 10mg tab ORAL SCH (21:52)
[2018-12-24] VITALS: BP 107/46
[2018-12-24 04:00] VITALS: BP 142/73
[2018-12-24] MEDS: Piperacillin/Tazobactam 2.25 GM in D5W 55 ML IVPB SCH ×2 (05:25→13:05)
--- NOTE | 2018-12-24 07:29 | NUR ---
HAND-OFF: Report given to DELIA Harris.
[2018-12-24 08:00] VITALS: BP 92/50
--- NOTE | 2018-12-24 08:25 | NUR ---
NURSE NOTES: PT AXOX1-2, CALM, RESTING IN BED. PT IS CONFUSED, DOES NOT KNOW DATE AND TIME. PT DID NOT KNOW IF IT WAS MORNING OR NIGHT AND ASKED RN. PT WAS RE-ORIENTED TO TIME, DATE AND PLACE. IN NO APPARENT DISTRESS AT THIS TIME. BED IN LOWEST POSITION WITH BEDSIDE RAILS X3 RAISED. BED ALARM ON. PT EDUCATED TO USE CALL LIGHT. WILL CONTINUE TO MONITOR.
[2018-12-24] MEDS: Aspirin EC 81mg tab ORAL SCH (09:26)
[2018-12-24 12:00] VITALS: BP 124/60
--- NOTE | 2018-12-24 13:23 | Surgery Progress Note ---
Surgery Progress Note Subjective Symptoms: improved, tolerating diet, voiding well, passing flatus, pain decreased Additional Comments no complaint no acute events comfortable stable abd exam stable labs noted, cr up Objective Last 24 Hour Vital Signs Date Time Temp Pulse Resp B/P (MAP) Pulse Ox O2 Delivery O2 Flow Rate FiO2 12/24/18 12:00 98.0 77 20 124/60 (81) 99 12/24/18 08:00 98.0 88 18 92/50 (64) 95 12/24/18 06:44 Room Air 12/24/18 05:12 98.0 12/24/18 04:00 98.1 87 17 142/73 (96) 97 12/24/18 00:00 98.0 84 17 107/46 (66) 97 12/23/18 20:09 Room Air 12/23/18 20:00 97.8 89 16 104/43 (63) 97 12/23/18 16:00 98.1 80 18 97/54 (68) 94 I&O Intake and Output 12/23/18 12/24/18 19:00 07:00 Intake Total 855 ml 240 ml Balance 855 ml 240 ml Intake Oral 800 ml 240 ml IV Total 55 ml # Voids 6 3 # Bowel Movements 4 Cardiovascular: RSR Respiratory: clear Abdomen: soft, non-tender, present bowel sounds, non-distended Extremities: no tenderness, no cyanosis Plan Problems: (1) Leukocytosis Assessment & Plan: 78-year-old female with above complaints. CT reviewed noted Labs noted Micro noted Given history and examination leukocytosis likely related to UTI. Unlikely related to gallbladder but was noted to be abnormal on CT scan. Ultrasound ordered Labs ordered Pending results Admit for further work-up, IV antibiotics, resuscitation We will follow with recommendations thank you for allowing me to participate in patient's care (2) Abdominal pain Assessment & Plan: Mild upper abdominal discomfort. No significant tenderness. Negative Castro's. LFTs normal History of gastric bypass no prior significant gallbladder issues Given history and examination leukocytosis likely related to UTI. Unlikely related to gallbladder but was noted to be abnormal on CT scan. Ultrasound ordered Labs ordered Pending results Admit for further work-up, IV antibiotics, resuscitation We will follow with recommendations thank you for allowing me to participate in patient's care Joselo Zabala Dec 24, 2018 13:23
--- NOTE | 2018-12-24 14:23 | General Progress Note ---
Assessment/Plan Problem List: (1) UTI (urinary tract infection) ICD Codes: N39.0 - Urinary tract infection, site not specified SNOMED: 21987328 (2) Gallbladder disorder ICD Codes: K82.9 - Disease of gallbladder, unspecified SNOMED: 73361823 (3) Leukocytosis ICD Codes: D72.829 - Elevated white blood cell count, unspecified SNOMED: 144171039, 210492118 (4) Altered mental status ICD Codes: R41.82 - Altered mental status, unspecified SNOMED: 912995330 (5) Generalized weakness ICD Codes: R53.1 - Weakness SNOMED: 09685999 (6) Abdominal pain ICD Codes: R10.9 - Unspecified abdominal pain SNOMED: 56762903 Assessment/Plan: discussed with RN and niece DC today Subjective Allergies: Coded Allergies: No Known Allergies (Unverified , 12/21/18) Subjective ok Objective Last 24 Hour Vital Signs Date Time Temp Pulse Resp B/P (MAP) Pulse Ox O2 Delivery O2 Flow Rate FiO2 12/24/18 12:00 98.0 77 20 124/60 (81) 99 12/24/18 08:00 98.0 88 18 92/50 (64) 95 12/24/18 06:44 Room Air 12/24/18 05:12 98.0 12/24/18 04:00 98.1 87 17 142/73 (96) 97 12/24/18 00:00 98.0 84 17 107/46 (66) 97 12/23/18 20:09 Room Air 12/23/18 20:00 97.8 89 16 104/43 (63) 97 12/23/18 16:00 98.1 80 18 97/54 (68) 94 Intake and Output 12/23/18 12/24/18 19:00 07:00 Intake Total 855 ml 240 ml Balance 855 ml 240 ml Intake Oral 800 ml 240 ml IV Total 55 ml # Voids 6 3 # Bowel Movements 4 Height (Feet): 5 Height (Inches): 4.00 Weight (Pounds): 155 Cardiovascular: normal rate Respiratory/Chest: lungs clear George Castro MD Dec 24, 2018 14:23
[2018-12-24] MEDS ORDERED: AMBIEN5 MG ORAL (14:25)
--- NOTE | 2018-12-24 14:28 | Infectious Diseases Prog Note ---
Assessment/Plan Assessment/Plan IMPRESSION: 1. E.coli UTI. 2. Cholelithiasis Castro's was negative. 3. Neurogenic bladder . 4. Elevated BUN and creatinine, renal failure. 5. Hypercalcemia. 6. Alzheimer's dementia. 7. Hyponatremia. 8. Coronary artery disease. RECOMMENDATION: Discontinue Zosyn. Keflex 500mg PO Q 12hours X 4 days Subjective ROS Limited/Unobtainable: Yes Constitutional: Reports: other - doing better Respiratory: Reports: no symptoms Gastrointestinal/Abdominal: Reports: no symptoms Genitourinary: Reports: no symptoms Allergies: Coded Allergies: No Known Allergies (Unverified , 12/21/18) Objective Vital Signs Last 24 Hour Vital Signs Date Time Temp Pulse Resp B/P (MAP) Pulse Ox O2 Delivery O2 Flow Rate FiO2 12/24/18 12:00 98.0 77 20 124/60 (81) 99 12/24/18 08:00 98.0 88 18 92/50 (64) 95 12/24/18 06:44 Room Air 12/24/18 05:12 98.0 12/24/18 04:00 98.1 87 17 142/73 (96) 97 12/24/18 00:00 98.0 84 17 107/46 (66) 97 12/23/18 20:09 Room Air 12/23/18 20:00 97.8 89 16 104/43 (63) 97 12/23/18 16:00 98.1 80 18 97/54 (68) 94 Height (Feet): 5 Height (Inches): 4.00 Weight (Pounds): 155 General Appearance: no acute distress HEENT: mucous membranes moist Respiratory/Chest: lungs clear Cardiovascular: normal rate Abdomen: soft, non tender Extremities: no edema Neurologic/Psychiatric: alert, responsive Current Medications Medications (Trade) Dose Ordered Sig/Wes Route PRN Reason Start Time Stop Time Status Last Admin Dose Admin Acetaminophen (Tylenol) 650 mg Q4H PRN ORAL Mild Pain (Pain Scale 1-3) 12/21/18 17:30 01/20/19 17:29 12/24/18 04:42 Aspirin (Ecotrin) 81 mg DAILY ORAL 12/22/18 09:00 01/21/19 08:59 12/24/18 09:26 Dextrose (Dextrose 50%) 25 ml Q30M PRN IV Hypoglycemia 12/21/18 17:30 01/20/19 17:29 Dextrose (Dextrose 50%) 50 ml Q30M PRN IV Hypoglycemia 12/21/18 17:30 01/20/19 17:29 Donepezil HCl (Aricept) 10 mg QHS ORAL 12/21/18 21:00 01/20/19 20:59 12/23/18 21:52 Magnesium Hydroxide (Mom) 30 ml HSPRN PRN ORAL Constipation 12/21/18 17:30 01/20/19 17:29 Mirtazapine (Remeron) 45 mg BEDTIME ORAL 12/23/18 21:00 01/22/19 20:59 12/23/18 21:52 Montelukast Sodium (Singulair) 10 mg QHS ORAL 12/21/18 21:00 01/20/19 20:59 12/23/18 21:52 Olanzapine (ZyPREXA) 5 mg QHS ORAL 12/21/18 21:00 01/20/19 20:59 12/23/18 21:52 Piperacillin Sod/ Tazobactam Sod 2.25 gm/Dextrose 55 ml @ 110 mls/hr Q8HR IVPB 12/21/18 22:00 12/26/18 21:59 12/24/18 13:05 Zolpidem Tartrate (Ambien) 5 mg HSPRN PRN ORAL Insomnia 12/21/18 17:30 12/28/18 17:29 12/22/18 01:31 Davis Castro MD Dec 24, 2018 14:28
[2018-12-24] MEDS ORDERED: CEPHALEXIN500 M1 ORAL (14:38)
--- NOTE | 2018-12-24 14:56 | NUR ---
RIM ROLLER OPERATOR NOTES PT ACCEPTED TO [facility].
--- NOTE | 2018-12-24 15:46 | NUR ---
DISCHARGE PLANNING DISCHARGE ORDER NOTED Patient has been accepted to; [facility] [address] [place] [address] Bed:11-B Skilled [phone] for Nurse to Nurse report [facility] ETA for transportation: 17:30
[2018-12-24 16:00] VITALS: BP 129/69
--- NOTE | 2018-12-24 16:57 | Cardiology Report ---
APPROVED REPORT EKG Measurement Heart [id number] Sinus rhythm with premature atrial complexes in a pattern of bigeminy Possible Left atrial enlargement Right bundle branch block Abnormal ECG
[2018-12-24] MEDS ORDERED: Cephalexin 250mg Cap ORAL SCH (18:00)
[2018-12-24] MEDS ORDERED: Tubing IV Secondary IV ONE (18:14)
--- NOTE | 2018-12-24 18:32 | NUR ---
DISCHARGE NURSE NOTES: REPORT GIVEN TO MARIA DE JESUS AT [facility]. RN SPOKE TO BERTIN (DT) AND MADE AWARE OF DISCHARGE. NO BELONGINGS NOTED. YVES RYAN AT BEDSIDE. IV ACCESS DISCONTINUED. PER DR Jose A GARNICA, PT TO BE DISCONTINUED WITH CEPHALEXIN 500MG PO Q12H X 4 DAYS. MARIA DE JESUS MADE AWARE. PT WAS DISCHARGED IN STABLE CONDITION.
--- NOTE | 2018-12-26 08:37 | Discharge Summary ---
Discharge Summary Discharge Summary _ DATE OF ADMISSION: 12/21/2018 DATE OF DISCHARGE: 12/24/2018 DISCHARGED BY: Dr. George Castro REASON FOR ADMISSION: 78 years old female with past medical history of coronary artery disease, status post stent placement years ago, status post gastric bypass years ago, Alzheimer dementia, neck and back surgery, presented by EMS with increased generalized weakness. Patient was found on the ground by her caregiver. Patient was noted initially to be unresponsive. The caregiver r was able to place patient back on the bed after the fall. Patient lives by herself and had intermittent caregiver. Patient previously had been independent. She reported generalized weakness and mild abdominal discomfort. She denied fever or chills. She denied any current pain. She denied vomiting or diarrhea. She denied headache. On evaluation vital signs were stable. Laboratory work-up revealed WBC 15, hemoglobin and hematocrit were stable. Stable electrolytes. BUN 27, creatinine 1.6. Glucose 134. Calcium 10.5. Stable LFT and lipase. Troponin 0.009. TSH within normal limits. Urinalysis was consistent with UTI. CT of the abdomen and pelvis revealed cholelithiasis and gallbladder distention. Unremarkable appendix. In emergency department patient pancultured , started on empiric antibiotic and admitted for further management. CONSULTANTS: ID specialist Dr. Davis Castro surgery Dr. Zabala [facility] COURSE: Patient admitted to medical surgical floor. Patient started on IV fluids and empiric antibiotics. Urine culture revealed E. coli . Antibiotic provided as per ID specialist recommendation. Surgeon seen and evaluated patient for gallbladder disease , noted on the CT scan. Patient was able to tolerate diet, voided well, pain was controlled, and abdominal exam was stable. LFT remained stable. No need for any surgical intervention. Renal parameters and electrolytes were closely monitored, electrolytes corrected as needed /potassium ; nephrotoxins were avoided. Patient was on IV antibiotic while in the hospital and discharged on oral antibiotic to complete the course. Leukocytosis resolved. Placement was arranged to the the snf [facility]. Patient was stable for transfer. Complete antibiotic at the facility as per ID specialist recommendations. FINAL DIAGNOSES: E. coli UTI Gallbladder disorder Leukocytosis- resolved Renal failure Alzheimer's dementia Neurogenic bladder Coronary artery disease DISCHARGE MEDICATIONS: See Medication Reconciliation list. DISCHARGE INSTRUCTIONS: Patient was discharged to the snf [facility]. Follow up with medical doctor at the facility. I have been assigned to dictate discharge summary for this account. I was not involved in the patient's management. Renée Mills NP Dec 26, 2018 08:37
== END 2018-12-24 18:15 | DRG 690 ==
LOC: EDBD 11:46 → EMR 13:07 → 4E 14:14 → EDBEDREQ 15:20 → 4E 16:20
DX: N39.0 Urinary tract infection, site not specified (principal); E87.0 Hyperosmolality and hypernatremia; N31.9 Neuromuscular dysfunction of bladder, unspecified; K80.20 Calculus of gallbladder without cholecystitis without obstruction; E83.52 Hypercalcemia; G30.9 Alzheimer's disease, unspecified; F02.80 Dementia in other diseases classified elsewhere, unspecified severity, without behavioral disturbance, psychotic disturbance, mood disturbance, and anxiety; Z98.84 Bariatric surgery status; I25.10 Atherosclerotic heart disease of native coronary artery without angina pectoris; Z95.5 Presence of coronary angioplasty implant and graft; N19 Unspecified kidney failure; Z91.81 History of falling; Z96.653 Presence of artificial knee joint, bilateral; Z96.649 Presence of unspecified artificial hip joint; Z79.82 Long term (current) use of aspirin; R10.9 Unspecified abdominal pain
CPT/HCPCS: 36415; 74176; 80053; 81003; 82150; 83690; 84443; 84484; 85007; 85025; 85610; 85651; 85730; 86140; 87086; 87181; 93005; 96365; 96367; 99285